=== PATIENT | female | born 1985 | race Caucasian/White ===

== ENCOUNTER 2017-02-05 21:51 | Emergency (ER) | payer BC ==
[~2017-02-05] VITALS: Ht 157.5 cm; Wt 118.2 kg
[~2017-02-05 21:51] MED LIST: DILAUDID2 MG PO
[2017-02-05 21:53] VITALS: BP 134/84
[2017-02-05 22:42] LABS: HEMATOCRIT 44.9 % (36.0-46.0); MCH 29.8 PG (29.0-34.0); MCHC 33.6 G/DL (30.0-36.0); MCV 88.7 FL (83-99); MEAN PLAT.VOLUME 10.1 uM^3 (9.5-12.4); PLATELET COUNT 295 K/uL (156-360); RBC DIS.WIDTH-CV 12.4 % (11.8-14.6); RBC DIS.WIDTH-SD 40.5 % (39-53); RED BLOOD COUNT 5.06 M/uL (3.80-5.20); WHITE BLOOD COUNT 9.2 K/uL (4.1-10.2)
[2017-02-05 22:53] LABS: CHLORIDE 106 mEq/L (99-109); POTASSIUM 4.4 mEq/L (3.7-5.4); SODIUM 139 mEq/L (136-147)
[2017-02-05 22:55] LABS: GLUCOSE 116 mg/dL (70-99)
[2017-02-05 22:57] LABS: ANION GAP 9 MEQ/L (2-14)
[2017-02-05 22:59] LABS: GFR ESTIMATE (CALCULATED) > 59 mL/min/
[2017-02-05 23:00] LABS: UREA NITROGEN (BUN) 14 mg/dL (9-23)
[2017-02-05 23:10] LABS: TROP-I INTERPRETATION NEGATIVE; TROPONIN-I 0.01 ng/mL (0.0-0.30)
== END 2017-02-05 23:40 | disposition left against medical advice (07) ==
LOC: EME 21:51
DX: R06.02 Shortness of breath (principal); R07.9 Chest pain, unspecified; G43.909 Migraine, unspecified, not intractable, without status migrainosus; R42 Dizziness and giddiness; Z53.21 Procedure and treatment not carried out due to patient leaving prior to being seen by health care provider
CPT/HCPCS: 71020; 80048; 84484; 85027; 93005

== ENCOUNTER 2017-06-13 15:36 | Emergency (ER) | payer OTHER ==
[~2017-06-13] VITALS: Ht 160 cm; Wt 126.0 kg
[2017-06-13 17:16] LABS: BASOPHIL COUNT 0.1 K/uL (0-0.1); EOSINOPHIL (%) 3.5 % (0-5); EOSINOPHIL COUNT 0.4 K/uL (0-0.3); HEMATOCRIT 41.3 % (36.0-46.0); IMMATURE GRANULOCYTE (%) 0.5 % (0.0-0.7); IMMATURE GRANULOCYTE COUNT 0.1 K/uL; INSTRUMENT ABS NEUTROPHIL CT 7.9 K/uL; LYMPHOCYTE COUNT 2.8 K/uL (1.0-2.8); MCH 29.7 PG (29.0-34.0); MCHC 33.4 G/DL (30.0-36.0); MEAN PLAT.VOLUME 9.9 uM^3 (9.5-12.4); MONOCYTE (%) 7.6 % (3-12); MONOCYTE COUNT 0.9 K/uL (0-0.8); NEUTROPHIL (%) 65.1 % (45-76); NEUTROPHIL COUNT 7.9 K/uL (1.8-6.4); PLATELET COUNT 278 K/uL (156-360); RBC DIS.WIDTH-CV 12.6 % (11.8-14.6); RBC DIS.WIDTH-SD 40.6 % (39-53); RED BLOOD COUNT 4.64 M/uL (3.80-5.20); WHITE BLOOD COUNT 12.1 K/uL (4.1-10.2)
[2017-06-13 17:24] LABS: CARBOXY HGB 1.8 % (0-5); HEMOGLOBIN 14.3 (11.9-15.5); METHEMOGLOBIN 0.7 % (0-1.5); MIXED VENOUS O2 SATURATION 85 % (65-75)
[2017-06-13 17:34] LABS: CHLORIDE 108 mEq/L (99-109); POTASSIUM 4.3 mEq/L (3.7-5.4); SODIUM 138 mEq/L (136-147)
[2017-06-13 17:36] LABS: GLUCOSE 129 mg/dL (70-99)
[2017-06-13 17:38] LABS: ANION GAP 7 MEQ/L (2-14); TOTAL BILIRUBIN 0.3 mg/dL (0.0-1.0)
[2017-06-13 17:40] LABS: ALKALINE PHOSPHATASE 61 IU/L (3-129); GFR ESTIMATE (CALCULATED) > 59 mL/min/
[2017-06-13 17:41] LABS: UREA NITROGEN (BUN) 15 mg/dL (9-23)
[2017-06-13] MEDS ORDERED: ROBAXIN750 MG PO (19:17)
[2017-06-13] MEDS ORDERED: COMPAZINE10 MG PO (19:17)
[2017-06-13 19:47] VITALS: BP 125/79
== END 2017-06-13 19:48 | disposition home or self-care (01) ==
LOC: EME 15:36
PROVIDERS: Emergency Medicine
DX: R51 Headache (principal); M54.2 Cervicalgia; R11.0 Nausea; R42 Dizziness and giddiness; R53.1 Weakness; Z86.711 Personal history of pulmonary embolism; Z86.718 Personal history of other venous thrombosis and embolism
CPT/HCPCS: 80053; 82810; 85025; 99281; 99284; J0780; J7030